=== PATIENT | male | born 1960 | race Caucasian/White ===

== ENCOUNTER 2019-11-04 10:44 | Day surgery (SDC) | payer MEDICARE, OTHER ==
[~2019-11-04 10:44] MED LIST: LACTATED RINGERS 1,000 ML IV.SOLN IV ONE; LIDOCAINE HCL 2% PF 100MG/5ML VIAL IJ ONE; MIDAZOLAM HCL 2 MG/2 ML VIAL ONE; PROPOFOL 200 MG/20 ML VIAL IV ONE; SEVOFLURANE 250 ML LIQUID IH ONE; fentaNYL CITRATE/PF 100 MCG/2 ML INJ. ONE
== END 2019-11-04 16:30 | disposition home or self-care (01) ==
LOC: OPSURG 10:44
PROVIDERS: ATTEND Specialist
DX: M99.05 Segmental and somatic dysfunction of pelvic region (principal); M70.61 Trochanteric bursitis, right hip; M99.06 Segmental and somatic dysfunction of lower extremity; M47.27 Other spondylosis with radiculopathy, lumbosacral region; M47.812 Spondylosis without myelopathy or radiculopathy, cervical region
CPT/HCPCS: 22505; 27198; 27275; J2001; J2250; J2704; J3010; J7120

== ENCOUNTER 2019-11-05 10:13 | Day surgery (SDC) | payer MEDICARE, OTHER ==
[~2019-11-05 10:13] MED LIST changes: -PROPOFOL 200 MG/20 ML VIAL IV ONE; +PROPOFOL 500 MG/50 ML VIAL IV ONE
== END 2019-11-05 15:40 | disposition home or self-care (01) ==
LOC: OPSURG 10:13
PROVIDERS: ATTEND Specialist
DX: M99.05 Segmental and somatic dysfunction of pelvic region (principal); M70.61 Trochanteric bursitis, right hip; M99.06 Segmental and somatic dysfunction of lower extremity; M47.27 Other spondylosis with radiculopathy, lumbosacral region; M47.812 Spondylosis without myelopathy or radiculopathy, cervical region
CPT/HCPCS: 22505; 27198; 27275; J2001; J2250; J2704; J3010; J7120